=== PATIENT | female | born 1980 | race Two or more races ===

== ENCOUNTER 2017-05-27 01:11 | Emergency (ER) | payer BC, OTHER ==
[~2017-05-27] VITALS: Ht 175.3 cm; Wt 90.7 kg
[2017-05-27] VITALS (7 sets, daily range): BP systolic 106–158; BP diastolic 65–114
[~2017-05-27 01:11] MED LIST: CLONIDINE HCL0.2 MG PO
[2017-05-27] MEDS ORDERED: cloNIDine 0.2mg Tab ORAL ONE (01:15)
--- NOTE | 2017-05-27 02:23 | Emergency Room Report ---
History of Present Illness General Chief Complaint: Behavioral Complaint Source: Patient Present Illness HPI 37YOF B[employer] and [employer] placed patient on 5150 because she was "chasing people around with a knife " per reports they had. 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 [employer] also states patient allegedly "overdosed on her blood pressure medication" clonidine but patient states she didnt take today. Takes 0.2mg daily, sometimes BID. BP elevated on arrival Denies taking other medications, denies drug use Also suspecting she is . LMP 2 months ago. Allergies: Coded Allergies: GABAPENTIN (Verified Allergy, Unknown, 05/27/17) QUETIAPINE (Verified Allergy, Unknown, 05/27/17) TRAZODONE (Verified Allergy, Unknown, 05/27/17) Patient History Past Medical History: HTN Past Surgical History: none Pertinent Family History: none Social History: Denies: smoking, alcohol use, drug use Last Menstrual Period: unk Now: No Immunizations: UTD Reviewed Nursing Documentation: PMH: Agreed, PSxH: Agreed Nursing Documentation-PMH Hx Hypertension: Yes Review of Systems All Other Systems: negative except mentioned in HPI Physical Exam Vital Signs Date Time Temp Pulse Resp B/P (MAP) Pulse Ox O2 Delivery O2 Flow Rate FiO2 05/27/17 01:01 99.1 78 18 169/122 99 Room Air Sp02 EP Interpretation: reviewed, normal General Appearance: normal inspection, well appearing, no apparent distress, alert, GCS 15, non-toxic Head: normocephalic, atraumatic Eyes: bilateral eye PERRL, bilateral eye EOMI ENT: normal ENT inspection, hearing grossly normal, normal voice Neck: normal inspection, full range of motion, supple, no bony tend Respiratory: normal inspection, lungs clear, normal breath sounds, no respiratory distress, no retraction, no wheezing Cardiovascular #1: regular rate, rhythm, no edema Gastrointestinal: normal inspection, normal bowel sounds, non tender, soft, no guarding, no hernia Genitourinary: no CVA tenderness Musculoskeletal: normal inspection, back normal, normal range of motion, Navjot' s Sign negative Neurologic: normal inspection, alert, oriented x3, responsive, slubber runner III-XII nml as tested, motor strength/tone normal, speech normal Psychiatric: normal inspection, judgement/insight normal, mood/affect normal Skin: normal inspection, normal color, no rash Lymphatic: normal inspection Medical Decision Making Diagnostic Impression: Primary Impression: Behavioral change Additional Impression: Hypertension Qualified Codes: I10 - Essential (primary) hypertension ER Course HTN - Was given her daily dose of clonidine Behavior change - Tylenol, ASA levels normal - Urine preg negative - No leuks. H&h stable. No other metabolic abnormalities - UA negative for UTI Patient medically cleared Pending PET Remains on [address] Dr Mayer at 615am to followup consult to Dr Morales for Psych clearance. Last Vital Signs Date Time Temp Pulse Resp B/P (MAP) Pulse Ox O2 Delivery O2 Flow Rate FiO2 05/27/17 01:01 99.1 78 18 169/122 99 Room Air Status: improved Referrals: NOT CHOSEN WILLIE/,REFERRING (PCP) VENU CRAIG M.D. May 27, 2017 02:23
[2017-05-27 02:35] LABS: APPEARANCE,URINE CLEAR; EOSINOPHILS % (AUTO) 1.9 % (0.0-3.0); KETONES,URINE 1+ (NEGATIVE); LEUKOCYTE ESTERASE ,URINE 1+ (NEGATIVE); LYMPHOCYTES % (AUTO) 30.2 % (20.0-45.0); MEAN CORPUSCULAR HEMOGLOBIN 24.6 PG (27.0-31.0); MEAN CORPUSCULAR HGB CONC 30.7 G/DL (32.0-36.0); MEAN CORPUSCULAR VOLUME 80 FL (80-99); MONOCYTES % (AUTO) 8.3 % (1.0-10.0); NEUTROPHILS % (AUTO) 58.6 % (45.0-75.0); NITRITE,URINE NEGATIVE (NEGATIVE); PH,URINE 5 (4.5-8.0); PLATELET COUNT 330 K/UL (150-450); PROTEIN,URINE 2+ (NEGATIVE); RED BLOOD COUNT 4.17 M/UL (4.20-5.40); RED CELL DISTRIBUTION WIDTH 20.1 % (11.6-14.8); UROBILINOGEN,URINE 1 MG/DL (0.0-1.0); WHITE BLOOD COUNT 7.9 K/UL (4.8-10.8)
[2017-05-27 02:45] LABS: RBC,URINE 0-2 /HPF (0 - 2)
[2017-05-27 02:46] LABS: BACTERIA,URINE FEW /HPF; CALCIUM OXALATE CRYSTALS,UR MANY /LPF; SQUAMOUS EPITHELIAL CELL,UR FEW /LPF (NONE/OCC); WBC,URINE 0-2 /HPF (0 - 2)
[2017-05-27 02:48] LABS: ACETAMINOPHEN < 10 ug/mL (10-30); ALANINE AMINOTRANSFERASE 21 U/L (3-33); ALBUMIN/GLOBULIN RATIO 1.2 (1.0-2.7); ANION GAP 12 (5-15); ASPARTATE AMINO TRANSFERASE 17 U/L (5-40); CALCIUM 8.7 mg/dL (8.6-10.2); CARBON DIOXIDE 22 mEQ/L (20-30); CHLORIDE 105 mEQ/L (98-107); CREATININE 0.7 mg/dL (0.5-0.9); GLOMERULAR FILTRATION RATE > 60 mL/min (>60); HEMOLYSIS 0; POTASSIUM 3.4 mEQ/L (3.4-4.9); SODIUM 139 mEQ/L (135-145); TOTAL PROTEIN 6.9 g/dL (6.6-8.7)
--- NOTE | 2017-05-27 13:24 | Consultation ---
Consultation HPI 37 yo female with self reported hx of ADD and meth dependence, currently sober, who was bib [employer] she is not 5150 " she was chasing people around with a knife and OD on her blood pressure medications." the pt denying and stated that she was asking the old tenants leave the property that she recently purchased. the pt was observed since last night and she has been calm and cooperative. the pt stated didn't endorse depressive/manic nor psychotic sxs. no si/hi. 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 left vm. the pt is not on hold and would like to leave. the pt currently is not at imminent dts/dto/gd. no psych hospt. no psych meds. urine tox negative. Allergies: Coded Allergies: GABAPENTIN (Verified Allergy, Unknown, 05/27/17) QUETIAPINE (Verified Allergy, Unknown, 05/27/17) TRAZODONE (Verified Allergy, Unknown, 05/27/17) Past Medical History htn General Appearance: Well Groomed Orientation: Time, Place, Person, Situation Attention Span Description: Good Mood/Memory: Euthymic Affect: Full Range Thought Process: Linear Speech: Normal in Volume & Rate Intelligence: Average Memory: immediate, recent, remote Insight/ Judgement: Good Impulse Control: Good Assessment/Plan Status: stable Assessment/Plan the pt is currently stable.and does not meet the criteria for 5150 -will be dced -no 5150 Yuliet Huitron M.D. May 27, 2017 13:24
--- NOTE | 2017-05-27 13:26 | Emergency Room Report ---
History of Present Illness General Chief Complaint: Behavioral Complaint Source: Patient Present Illness Allergies: Coded Allergies: GABAPENTIN (Verified Allergy, Unknown, 05/27/17) QUETIAPINE (Verified Allergy, Unknown, 05/27/17) TRAZODONE (Verified Allergy, Unknown, 05/27/17) Patient History Last Menstrual Period: unk Now: No Nursing Documentation-PMH Hx Hypertension: Yes Physical Exam Vital Signs Date Time Temp Pulse Resp B/P (MAP) Pulse Ox O2 Delivery O2 Flow Rate FiO2 05/27/17 01:01 99.1 78 18 169/122 99 Room Air Medical Decision Making Diagnostic Impression: Primary Impression: Behavioral change Additional Impression: Hypertension Qualified Codes: I10 - Essential (primary) hypertension ER Course Pt has remained in the emergency room, not in acute distress, not voicing any suicidal or homicidal ideation during ED stay Evaluated by psych, patient to be discharged home Last Vital Signs Date Time Temp Pulse Resp B/P (MAP) Pulse Ox O2 Delivery O2 Flow Rate FiO2 05/27/17 11:16 77 15 132/86 99 Room Air 05/27/17 09:05 98.1 Disposition: HOME, SELF-CARE Condition: Stable Referrals: NOT CHOSEN [facility]/,REFERRING (PCP) Patient Instructions: Self-Destructive Behavior Davon Mayer M.D. May 27, 2017 13:26
== END 2017-05-27 13:31 | disposition home or self-care (01) ==
LOC: EDBD 01:11 → EMR 01:25
DX: F68.8 Other specified disorders of adult personality and behavior (principal); I10 Essential (primary) hypertension; Z88.8 Allergy status to other drugs, medicaments and biological substances
CPT/HCPCS: 36415; 80053; 80300; 81003; 81025; 85025; 99283; G0480; 80329